=== PATIENT | male | born 1985 | race Two or more races ===

== ENCOUNTER 2024-10-26 19:42 | Emergency (ER) | payer BC, SELFPAY ==
[2024-10-26 19:43] VITALS: BMI 31.1
--- NOTE | 2024-10-26 19:47 | EKG_ITS ---
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
[2024-10-26 20:57] VITALS: BP 166/110; PULSE 86; RESP 18; TEMP 36.7; O2SAT 96
[2024-10-26] MEDS: DIAZEPAM 5 MG TABLET 10 MG PO (21:21)
--- NOTE | 2024-10-27 02:55 | EDNOTE_ITS ---
ED Anxiety RME/HPI General Chief Complaint: Chest Pain Stated Complaint: CHEST PAIN OFF AND ON Time Seen by Provider: 10/26/24 20:48 Arrival date/time: 10/26/24 19:42 39M with history of anxiety and HTN presents to ED with 1 day of intermittent CP and R-sided head pressure. Patient denies URI symptoms, SOB, fall/trauma, weakness, dizziness, and LOC. Limitations: no limitations Related Data Home Medications ?Medication ?Instructions ?Recorded ?Confirmed albuterol sulfate 90 mcg/actuation 2 puff inhalation Q 6H PRN 01/23/19 01/23/19 aerosol inhaler (Ventolin HFA) Shortness Of Breath Previous Rx's ?Medication ?Instructions ?Recorded albuterol sulfate 90 mcg/actuation 2 inh inhalation Q4 H PRN wheezing 01/23/19 aerosol inhaler (Proventil HFA) #8.5 grams azithromycin 250 mg tablet See Rx Instructions PO .COM PLEX #6 01/23/19 (Zithromax Z-Solitario) tabs Allergies Allergy/AdvReac Type Severity Reaction Status Date / Time No Known Allergies Allergy Verified 01/23/19 09:35 Review of Systems Review of Systems Systems Reviewed: All systems reviewed, normal except as documented Constitutional Constitutional: Reports system reviewed and no additional complaints, except as documented, Reports as per HPI, Denies fever(s) and Reports headache(s) (pressure) ENT Ears, Nose, Mouth, and Throat: Denies disequilibrium and Reports headache(s) (pressure) Cardiovascular Cardiovascular: Reports system reviewed and no additional complaints, except as documented, Reports as per HPI, Reports chest pain and Denies dyspnea Respiratory Respiratory: Reports system reviewed and no additional complaints, except as documented, Denies cough and Denies dyspnea Gastrointestinal Gastrointestinal: Reports system reviewed and no additional complaints, except as documented, Denies abdominal pain, Denies nausea and Denies vomiting Neurologic Neurologic: Reports system reviewed and no additional complaints, except as documented, Denies confusion, Denies disequilibrium and Reports headache(s) (pressure) Psychiatric Psychiatric: Denies confusion Past Medical History Past Medical History CARDIAC: Positive Hypertension; Negative Congestive Heart Failure RESPIRATORY: Negative Chronic Obstructive Pulmonary Disease (COPD) GENITOURINARY: Negative Renal Disease ENDOCRINE: Negative Diabetes Mellitus Type 1 or Diabetes Mellitus Type 2 Social History SMOKING STATUS: Never smoker SUBSTANCE USE: does not use ED Exam General Limitations: Present no limitations General appearance: Present alert, in no apparent distress and anxious Head Head exam: Present atraumatic Eye Eye exam: Present normal appearance, PERRL and EOMI ENT ENT exam: Present normal exam, normal oropharynx and mucous membranes moist Neck Neck exam: Present normal inspection, full ROM and trachea midline Chest Chest inspection: Present normal inspection and symmetric chest wall rise Respiratory Respiratory exam: Present normal lung sounds bilaterally Cardiovascular Cardiovascular exam: Present regular rate, normal rhythm and normal heart sounds Abdominal Exam Abdominal exam: Present soft and normal bowel sounds Extremities Exam Extremities exam: Present normal inspection and full ROM Back Exam Back exam: Present normal inspection and full ROM Neurological Exam Neurological exam: Present alert, oriented X3 and CN II-XII intact Psychiatric Psychiatric exam: Present normal affect and normal mood Skin Skin exam: Present warm, dry, intact and normal color Course Quality Measures none Orders Category Date Time Status EKG (ED ONLY) *Do not use* NOW Care 10/26/24 19:47 Completed EKG (ED Only) Stat Exams 10/26/24 19:47 Draft Diazepam [Valium] Med 10/26/24 21:08 Discontinued 10 mg PO X1 ONE Vital Signs Vital signs: Vital Signs Temperature 98.1 F 10/26/24 20:57 Pulse Rate 86 10/26/24 20:57 Respiratory Rate 18 10/26/24 20:57 Blood Pressure 166/110 H 10/26/24 20:57 Pulse Oximetry (%) 96 10/26/24 20:57 Oxygen Delivery Method Room Air 10/26/24 20:57 Anxiety MDM Narrative MDM Narrative: 39M with history of anxiety and HTN presents to ED with 1 day of intermittent CP and R-sided head pressure. Patient denies URI symptoms, SOB, fall/trauma, weakness, dizziness, and LOC. Physical exam reveals normal pupil response and EOM. ENT and lungs clear. RRR. Patient is afebrile, alert, but anxious. EKG is NSR. Valium improved symptoms. Patient data External records reviewed:: [facility] previous records Clinical information provided by:: patient Social determinants that could affect healthcare access:: mental health Patient has the following chronic illnesses:: anxiety and HTN How is presenting disease/condition affected by chronic disease/condition?: caused by Evaluation data The following diagnostics were reviewed and interpreted by me:: EKG tracing(s) Lab and/or radiology exams considered but not ordered:: ordered Interpretation Summary: above Medications / Prescriptions Medications or Prescriptions considered but not ordered:: ordered Medication administrations:: Medication Administration History Discontinued Medications Diazepam (Diazepam 5 Mg Tablet) 10 mg PO X1 ONE Stop: 10/26/24 21:09 Last Admin: 10/26/24 21:21 Dose: 10 mg Documented By: PINOR Consultations Consultation(s) initiated? (list below): No Diagnosis Differential diagnosis anxiety: hyperventilation, panic disorder, acute anxiety and other (ACS, PE) Most likely diagnosis given after review of the tests above:: anxiety Admission Indicated Admission indicated?: not indicated Admission Request Was there a request for admission?: No Disposition Plan Disposition Plan: Discharge Discharge Attestation Discharge Attestation: The patient and all family members were given an opportunity to ask questions and understood the discharge instructions. Discharge instructions specifically effects, indications for sooner follow up or return to the emergency department, and the expected course of current diagnosis. Patient condition: Stable Discharge Plan Plan Patient Disposition: HOME (Self Care) Disposition Comment: Stable Prescriptions/Referrals Prescriptions/Med Rec: No Action albuterol sulfate [Ventolin HFA] 90 mcg/actuation Hfa Aerosol Inhaler 2 puff INHALATION Q6H PRN (Reason: Shortness Of Breath) albuterol sulfate [Proventil HFA] 90 mcg/actuation HFA aerosol inhaler 2 inh INH Q4H PRN (Reason: wheezing) Qty: 8.5 0RF azithromycin [Zithromax Z-Solitario] 250 mg tablet See Rx Instructions .ROUTE .COMPLEX Qty: 6 0RF Rx Instructions: take 500 mg today (day 1), then 250 mg for 4 days (days 2-5) Problem List Clinical Impression: Anxiety Patient/Caregiver Discharge Instructions Education Materials: Your Body's Response to Anxiety Additional Instructions: Please follow-up with PCP within 24-48 hours and return immediately if symptoms worsen. Print Language: Macedonian Stand Alone Forms: Patient Portal Info Letter ERIC/MODE Supervising Physician ERIC/MODE Supervising Physician: Dr. Shaw
== END 2024-10-26 21:54 | disposition home or self-care (01) ==
LOC: SERX 21:53
PROVIDERS: Emergency Provider Emergency Medicine
DX: F41.9 Anxiety disorder, unspecified (principal); I10 Essential (primary) hypertension
CPT/HCPCS: 93005; 99283; A9270